=== PATIENT | male | born 1995 | race Caucasian/White ===

== ENCOUNTER 2022-07-24 23:29 | Observation (INO) | payer OTHER, SELFPAY ==
--- NOTE | ~2022-07-24 | CT_ITS ---
EXAMINATION: CT abdomen pelvis w con INDICATION: Right lower quadrant pain TECHNIQUE: Computed tomographic images of the abdomen and pelvis were obtained after the administrati on of 100 cc of Omnipaque 350 intravenous contrast. The dose-length product (DLP) was 433.81 mGy-cm. Automated exposure control and iterative reconstruction technique were employed. COMPARISON: None available FINDINGS: A calcified nodule of the left lower lobe is consistent with old granulomatous disease. The heart size is normal. The liver, spleen, pancreas, gallbladder, and adrenal glands are normal. The k idneys are unremarkable. No pathologically enlarged abdominal or pelvic lymph nodes are identified. N o free intraperitoneal gas or evidence of bowel obstruction. The dilated appendix measures up to 9 mm . There is a trace amount of periappendiceal fluid which tracks into the pelvis. No perforation or ab scess are identified. IMPRESSION: 1. Acute appendicitis. Reviewed, dictated and finalized at location A. TO PICKER IMPRESSION: 1. Acute appendicitis.
[2022-07-24 23:31] VITALS: BP 148/83; PULSE 73; RESP 18; TEMP 36.1; O2SAT 100
[2022-07-24 23:37] VITALS: BP 131/84; PULSE 63; RESP 11; O2SAT 100
[2022-07-24 23:58] LABS: Basophils Absolute Auto 0.1 K/mm3 (0.0-0.1); Basophils Percent Auto 0.6 % (0.2-1.2); Eosinophils Absolute Auto 0.1 K/mm3 (0-0.3); Eosinophils Percent Auto 1.1 % (0-4.4); Hematocrit 46.6 % (42.0-52.0); Hemoglobin 16.1 g/dL (14.0-18.0); Immature Granulocyte Absolute 0.05 K/mm3 (0.00-0.031); Immature Granulocyte Percent A 0.4 % (0-0.5); Lymphocytes Absolute Auto 2.89 K/mm3 (0.9-3.2); Lymphocytes Percent Auto 22.2 % (18.3-44.2); Mean Corpuscular HGB Conc 34.5 g/dl (32-36); Mean Corpuscular Hemoglobin 30.9 pg (26-34); Mean Corpuscular Volume 89.4 fl (80-100); Mean Platelet Volume 9.8 fl (7.4-10.4); Monocytes Absolute Auto 0.8 K/mm3 (0.1-0.6); Monocytes Percent Auto 6.1 % (2.6-8.5); Neutrophils Absolute Auto 9.1 K/mm3 (1.3-6.7); Neutrophils Percent Auto 69.6 % (45.5-73.1); Platelet Count Result 221 k/mm3 (150-375); Red Blood Count 5.21 M/mm3 (4.6-6.20); Red Cell Distribution Width 12.5 % (11.5-14.5)
[2022-07-25] VITALS (20 sets, daily range): BP systolic 108–130; BP diastolic 64–87; PULSE 67–95; RESP 13–22; TEMP 36.1–37.1; O2SAT 94–100; BMI 23.6
[2022-07-25 00:08] LABS: Alanine Aminotransferase 28 U/L (6-50); Albumin Level 4.4 g/dL (3.5-5.1); Alkaline Phosphatase 81 U/L (38-126); Anion Gap 5 mmol/L (8-16); Aspartate Amino Transferase 27 U/L (17-59); Bilirubin,Total 0.5 mg/dL (0.2-1.3); Blood Urea Nitrogen 16 mg/dL (9-20); Calcium 8.9 mg/dL (8.4-10.2); Carbon Dioxide 32 mmol/L (22-30); Chloride 101 mmol/L (98-107); Estimated Glomerular Filt Rate > 60; Glucose 89 mg/dL (65-110); Lipase 116 U/L (23-300); Potassium 3.8 mmol/L (3.4-5.0); Sodium 138 mmol/L (137-145)
--- NOTE | 2022-07-25 00:15 | ED.ABDPAIN ---
HPI - Abdominal Pain General Chief Complaint: Abdominal Pain <SARA Zamora Last Filed: 07/25/22 03:38> Stated Complaint: Abdominal pain <SARA Zamora Last Filed: 07/25/22 03:38> Time Seen by Provider: 07/24/22 23:38 <SARA Zamora Last Filed: 07/25/22 03:38> Source: patient <SARA Zamora Last Filed: 07/25/22 03:38> Mode of arrival: ambulatory <SARA Zamora Last Filed: 07/25/22 03:38> Limitations: no limitations <SARA Zamora Last Filed: 07/25/22 03:38> History of Present Illness HPI narrative: Patient is a 26-year-old male who presents to the ED with report of periumbilical abdominal pain. Patient reports the pain began suddenly around 3 hours ago. It has been constant and worsening since then. He states the pain somewhat radiates through to his back. He has never had pain like this before. He has not taken anything for pain. He thought he may have over ate at [place] and attempted to make himself throw up. He denies any current nausea. Denies issues with diarrhea or constipation. Last BM this am. Denies fevers. Denies urinary symptoms. <SARA Zamora Last Filed: 07/25/22 03:38> Related Data Home Medications: Home Medications Medication Instructions Recorded Confirmed No Home Medications 07/24/22 07/24/22 <SARA Zamora Last Filed: 07/25/22 03:38> Allergies/Adverse Reactions: Allergies Allergy/AdvReac Type Severity Reaction Status Date / Time No Known Allergies Allergy Verified 07/24/22 23:34 <SARA Zamora Last Filed: 07/25/22 03:38> Review of Systems Review of Systems: CONSTITUTIONAL: Denies fever, chills, or sweats. CARDIOVASCULAR: Denies chest pain. RESPIRATORY: Denies dyspnea. GASTROINTESTINAL: See HPI. GENITOURINARY: Denies dysuria or hematuria. SKIN: Denies rash or itching. MUSCULOSKELETAL: See HPI. <Marcia Busby PA-C - Last Filed: 07/25/22 03:38> All systems reviewed & are unremarkable except as noted in HPI and below <Marcia Busby PA-C - Last Filed: 07/25/22 03:38> PMFSH Past Medical History Medical History: Medical History (Updated 07/25/22 @ 03:26 by Marcia Busby PA-C) No pertinent past medical history <Marcia Busby PA-C - Last Filed: 07/25/22 03:38> Surgical History Surgical History: Surgical History (Updated 07/25/22 @ 00:30 by Marcia Busby PA-C) No pertinent past surgical history <Marcia Busby PA-C - Last Filed: 07/25/22 03:38> Social History Social History: Social History (Updated 07/25/22 @ 00:31 by Marcia Busby PA-C) Smoking status: Never smoker <Marcia Busby PA-C - Last Filed: 07/25/22 03:38> Exam Narrative: GENERAL: Well appearing, well-nourished, non-toxic, in mild acute distress due to pain. HEAD: Normocephalic, atraumatic. NECK: Supple. No adenopathy, no masses. RESPIRATORY: Airway patent, respirations nonlabored. Clear to auscultation bilaterally, no rales, rhonchi, wheezing. CARDIOVASCULAR: Regular rate and rhythm without murmurs, rubs, or gallops. Peripheral pulses 2+ and equal bilaterally. ABDOMINAL: Soft, moderate tenderness to periumbilical region and right lower quadrant, negative Rovsing's, no significant rebound tenderness, nondistended, no hepatosplenomegaly. Normoactive BS. MUSCULOSKELETAL: Moves all extremities. Strength/ROM intact without gross deformities. SKIN: Warm, dry, normal color. No rashes. NEURO: A&O X3. Speech clear. Cranial nerves II-XII grossly intact. Steady gait. No ataxic movements. PSYCHIATRIC: Appropriate mood and affect. Normal interaction. <Marcia Busby PA-C - Last Filed: 07/25/22 03:38> Course END MAKER/PA Physician Supervision For this patient encounter, I reviewed the END MAKER or PA documentation, treatment plan, and medical decision making
[2022-07-25] MEDS: ONDANSETRON INJ 4 MG/2 ML VIAL IV PUSH (00:33)
[2022-07-25] MEDS: MORPHINE SULFATE (*CRX) 4 MG/ML INJ IV PUSH ×2 (00:33→05:18)
[2022-07-25] MEDS: SODIUM CHLORIDE 0.9% IV 1,000 ML 999 ML IV CONT (00:33)
[2022-07-25 01:41] LABS: Appearance Urine Clear (Clear); Bilirubin Urine Negative (Negative); Blood Urine Negative (Negative); Color Urine Yellow (Yellow); Glucose Urine UA Negative (Negative); Ketones Urine 2+ mg/dL (Negative); Leukocyte Esterase Ur Negative LEU/UL (Negative); Nitrate Urine Negative (Negative); Protein Urine Trace mg/dL (Negative); Specific Grav Ur 1.015 (1.001-1.035); Urobilinogen Urine 0.2 mg/dL (<2.0); pH Urine 8.5 (5.0-9.0)
[2022-07-25 01:51] LABS: WBC Urine 0-3 /hpf
[2022-07-25 02:26] LABS: Add Urine Microscopic? YES
[2022-07-25 04:40] LABS: Influenza A QL RT-PCR Negative (Negative); Influenza B QL RT-PCR Negative (Negative); SARS-CoV-2 RNA PCR Negative
[2022-07-25] MEDS: SODIUM CHLORIDE 0.9% IV 1,000 ML 100 ML IV CONT (06:25)
--- NOTE | 2022-07-25 09:10 | PM.IMHP ---
H&P: HPI History of Present Illness Date/Time: 07/25/22 09:10 Chief Complaint: Acute appendicitis. Narrative: Patient is a healthy 26-year-old male who is active who presented to the emergency room last evening with a 6 hr history of sudden onset of right lower quadrant abdominal pain. workup in the emergency room [place] [id number] scan abdomen pelvis showed a dilated appendix with wall thickening and some mild periappendiceal inflammation. Findings were consistent with early acute appendicitis. This morning his pain is still present but not as bad. He has been started on Zosyn for IV antibiotics. He has remained afebrile. Review of Systems Review of Systems: The remainder of the review of systems to include constitutional, HEENT, cardiovascular, respiratory, GI, , integumentary, musculoskeletal, endocrine, immunologic, hematologic, psychiatric, and neurologic are all negative except for which is mentioned above in the HPI. [facility] Past Medical History Medical History No pertinent past medical history Surgical History Surgical History No pertinent past surgical history Social History Social History Smoking status: Never smoker Alcohol intake: never Substance use: never Lack of Transportation: No Lack of Food: Never True Current Housing: I Have Housing Concerned About Future Housing: No Difficulty Paying Gas/Electric Bills: No Difficulty Paying for Meds: No Currently Unemployed: No Education: Bachelor's Degree Difficulty w/ Childcare or Family Care: No Spiritual care concerns: No Meds Home Medications and Allergies Home Medications Medication Instructions Recorded Confirmed Type No Home Medications 07/24/22 07/24/22 History Allergies Allergy/AdvReac Type Severity Reaction Status Date / Time No Known Allergies Allergy Verified 07/24/22 23:34 Vital Signs Vital Signs - 24 hr 07/24/22 23:31 07/24/22 23:37 07/25/22 00:01 Temperature 36.1 C L Pulse Rate 73 63 77 Respiratory Rate 18 11 L 14 Blood Pressure 148/83 H 131/84 122/82 Pulse Oximetry 100 100 100 Oxygen Delivery Room Air 07/25/22 00:16 07/25/22 00:17 07/25/22 00:30 Temperature Pulse Rate 70 74 68 Respiratory Rate 16 15 17 Blood Pressure 108/87 Pulse Oximetry 100 100 100 Oxygen Delivery 07/25/22 00:45 07/25/22 01:15 07/25/22 01:30 Temperature Pulse Rate 69 74 83 Respiratory Rate 16 18 16 Blood Pressure Pulse Oximetry 98 94 96 Oxygen Delivery 07/25/22 01:45 07/25/22 02:00 07/25/22 02:15 Temperature Pulse Rate 86 95 94 Respiratory Rate 16 14 14 Blood Pressure Pulse Oximetry 98 96 96 Oxygen Delivery 07/25/22 02:30 07/25/22 02:45 07/25/22 03:41 Temperature 37.1 C Pulse Rate 90 81 80 Respiratory Rate 17 22 H 13 Blood Pressure 121/78 Pulse Oximetry 99 96 100 Oxygen Delivery 07/25/22 04:00 07/25/22 05:52 Temperature 36.2 C L Pulse Rate 79 82 Respiratory Rate 16 18 Blood Pressure 116/68 130/86 Pulse Oximetry 99 99 Oxygen Delivery Exam Const: General: comfortable and no acute distress HENMT: Mouth: Yes moist mucous membranes Eyes: General: appearance normal, both eyes and all related structures Sclera: sclerae normal Pupils: Equal, round and reactive pupils present EOM: EOMs intact bilaterally Neck: Neck: supple and no JVD Resp: Effort & Inspection: normal respiratory effort Auscultation: clear to auscultation bilaterally Cardio: Rate: regular rate Rhythm: regular rhythm GI: Other: The abdomen is soft and nondistended. Mild tenderness to deep palpation in the right lower quadrant. No guarding is appreciated and no focal peritoneal signs are noted. No ventral hernias are noted and no masses are palpated. :
--- NOTE | 2022-07-25 09:16 | WPDHPUPDATE1 ---
History and Physical Update Update Date/Time: 07/25/22 09:16 History and Physical has been reviewed, including an updated exam of the patient. There are NO changes in the patient's condition. Risks, benefits, and alternatives have been discussed and questions answered. Patient agrees to proceed with procedure.
--- NOTE | 2022-07-25 10:04 | WPDANESEPPF ---
Anes - Initial Pre Proc Eval Procedure: Operation Date: 07/25/22 11:00 Proposed Procedures p Laparoscopic Appendectomy - Kimo Garcia MD Date/Time: 07/25/22 10:04 Surgeon: Kimo Garcia MD Pre Op Diagnosis: acute appendicitis Patient Data Age: 26 Gender: M Height: 1.8 m Weight: 77 kg Last Vital Signs Temp 36.2 C L 07/25/22 05:52 Pulse 82 07/25/22 05:52 Resp 18 07/25/22 05:52 BP 130/86 07/25/22 05:52 Pulse Ox 99 07/25/22 05:52 O2 Del Method Room Air 07/24/22 23:31 Allergies Allergy/AdvReac Type Severity Reaction Status Date / Time No Known Allergies Allergy Verified 07/24/22 23:34 Home Medications Medication Instructions Recorded Confirmed Type No Home Medications 07/24/22 07/24/22 History Laboratory Tests 07/24/22 07/24/22 07/25/22 23:51 23:51 01:25 WBC 13.0 K/mm3 H K/mm3 (4.5-10.0) RBC 5.21 M/mm3 M/mm3 (4.6-6.20) Hgb 16.1 g/dL g/dL (14.0-18.0) Hct 46.6 % % (42.0-52.0) MCV 89.4 fl fl (80-100) MCH 30.9 pg pg (26-34) MCHC 34.5 g/dl g/dl (32-36) RDW 12.5 % % (11.5-14.5) Plt Count 221 k/mm3 k/mm3 (150-375) MPV 9.8 fl fl (7.4-10.4) Immature Gran % (Auto) 0.4 % % (0-0.5) Neut % (Auto) 69.6 % % (45.5-73.1) Lymph % (Auto) 22.2 % % (18.3-44.2) [place] % (Auto) 6.1 % % (2.6-8.5) Eos % (Auto) 1.1 % % (0-4.4) Baso % (Auto) 0.6 % % (0.2-1.2) Lymph # (Auto) 2.89 K/mm3 K/mm3 (0.9-3.2) [place] # (Auto) 0.8 K/mm3 H K/mm3 (0.1-0.6) Eos # (Auto) 0.1 K/mm3 K/mm3 (0-0.3) Baso # (Auto) 0.1 K/mm3 K/mm3 (0.0-0.1) Abs Immat Gran (auto) 0.05 K/mm3 H K/mm3 (0.00-0.031) Absolute Neuts (auto) 9.1 K/mm3 H K/mm3 (1.3-6.7) Absolute Nucleated RBC 0.0 K/mm3 K/mm3 (0.0-0.012) Nucleated RBC % 0.0 % % (0.0-0.2) Sodium 138 mmol/L mmol/L (137-145) Potassium 3.8 mmol/L mmol/L (3.4-5.0) Chloride 101 mmol/L mmol/L (98-107) Carbon Dioxide 32 mmol/L H mmol/L (22-30) Anion Gap 5 mmol/L L mmol/L (8-16) BUN 16 mg/dL mg/dL (9-20) Creatinine 1.00 mg/dL mg/dL (0.7-1.3) Estim Creat Clear Calc Not Reportable Estimated GFR > 60 (59 - ) Glucose 89 mg/dL mg/dL (65-110) Calcium 8.9 mg/dL mg/dL (8.4-10.2) Total Bilirubin 0.5 mg/dL mg/dL (0.2-1.3) AST 27 U/L U/L (17-59) ALT 28 U/L U/L (6-50) Alkaline Phosphatase 81 U/L U/L (38-126) Total Protein 7.0 g/dL g/dL (6.3-8.2) Albumin 4.4 g/dL g/dL (3.5-5.1) Lipase 116 U/L U/L (23-300) Urine Color Yellow (Yellow) Urine Appearance Clear (Clear) Urine pH 8.5 (5.0-9.0) Ur Specific [place] 1.015 (1.001-1.035) Urine Protein Trace mg/dL mg/dL (Negative) Urine Glucose (UA) Negative mg/dL mg/dL (Negative) Urine Ketones 2+ mg/dL H mg/dL (Negative) Ur Blood (Man) Negative (Negative) Urine Nitrate Negative (Negative) Urine Bilirubin Negative (Negative) Urine Urobilinogen 0.2 mg/dL mg/dL (<2.0) Leukocyte Esterase Rfl Negative ANUJA/UL ANUJA/UL (Negative) Urine RBC 6-10 /hpf H /hpf (0-2) Urine WBC 0-3 /hpf /hpf Influenza A (RT-PCR) Influenza B (RT-PCR) SARS-CoV-2 RNA (RT-PCR) 07/25/22 03:59 WBC RBC Hgb Hct MCV MCH MCHC RDW Plt Count MPV Immature Gran % (Auto) Neut % (Auto) Lymph % (Auto) [place] % (Auto) Eos % (Auto) Baso % (Auto) Lymph # (Auto) [place] # (Auto) Eos # (Auto)
--- NOTE | 2022-07-25 10:40 | PC.NURSE ---
Pt to preop via bed at 1000
[2022-07-25] MEDS: BUPivacaine HCL 0.5% PF 30 ML VIAL 20 ML INFILTRATE (11:00)
[2022-07-25] MEDS: LIDO 1%/EPINEPHRINE 1:100,000 20 ML VIAL INFILTRATE (11:01)
[2022-07-25] MEDS: KETOROLAC 30 MG/ML VIAL (*BKC) IV PUSH (11:07)
--- NOTE | 2022-07-25 11:19 | P.OP_ITS ---
Procedure Note - Detailed Date of Procedure 07/25/22 Pre-op Diagnosis acute appendicitis Post-op Diagnosis Same Procedure Performed Laparoscopic appendectomy Surgeon Kimo Garcia MD Religious Education Coordinator AMMON Barcenas Anesthesia General Indications Patient presented with right lower quadrant abdominal pain associated with elevated white blood cell count and CT scan findings consistent with early acute appendicitis. Findings Acutely inflamed appendix without rupture or gangrene. No periappendiceal abscess. Description of Procedure After informed consent was obtained note brought to the operating room where he is placed in a supine position and then general endotracheal anesthesia was administered. The abdomen was prepped and draped in the usual sterile fashion after placement of a Garber catheter to decompress the bladder. A time-out was then performed correctly identifying the patient as well as the procedure to be performed. He was already on scheduled IV antibiotics. I made a small periumbilical incision with a scalpel and then with traction upwards on the anterior abdominal wall a Varees needle was placed into the abdomen without difficulty and I insufflated to an adequate pneumoperitoneum of 15millimeters Hg with CO2. I then placed a 12millimeter Optiview port the periumbilical trocar port site. I then placed a 5millimeter suprapubic trocar port and a 5millimeter lower quadrant trocar port both under direct visualization. The appendix was visualized in the right side of the pelvis. Utilizing laparoscopic instruments was able to elevate the appendix and I identified the base. The appendix was inflamed but not gangrenous or ruptured. The base of the appendix appeared to be normal. I then made a defect through the mesoappendix with a [place] Dissector just at the base and utilized a 45 mm Endo-ALLISON Stapler to divide the appendix flush with the cecum. A vascular reload to the Endo-ALLISON Stapler was used to divide the mesoappendix. The appendix was then placed into an Endo- Catch bag and brought out through the periumbilical car port site. It was sent to pathology for examination. I then irrigated out the right lower quadrant of the abdomen with saline solution. Hemostasis on the staple lines was good. I then aspirated the fluid from the right lower quadrant of the abdomen and from the pelvis. I then removed all the trocar ports under visualization and all port sites appeared hemostatic. I then allowed the abdomen is decompress. I then closed the 12millimeter periumbilical trocar port fascial defect utilizing a 0 Vicryl suture. The skin edges on all port sites were then closed utilizing a running subcuticular 4 Monocryl suture. incisions were then cleaned in skin glue was applied. Estimated Blood Loss 10 Urine Output 0 Drains No Packing No Pathology Yes (Appendix to pathology) Complications No immediate complications Condition Stable Disposition PACU [facility] Billing Surgery - Charge Forward: Surgery Billing
[2022-07-25] MEDS: LACTATED RINGERS 1,000 ML 30 ML IV CONT (11:30)
[2022-07-25] MEDS: fentaNYL CITRATE INJ (*CRX) 100 MCG/2 ML VIAL 25 MCG IV PUSH ×8 (11:30→12:14)
[2022-07-25] MEDS: HYDROcodone/acetaminophen (*CRX) 5-325 MG TABLET 1 TAB PO (15:06)
--- NOTE | 2022-07-25 18:38 | PM.DS ---
DS: Admitting Diagnosis Discharge Date July 25 2022 Admitting Diagnosis acute appendicitis DS: Discharge Diagnosis Discharge Diagnosis (1) Acute appendicitis: Qualifiers: Acute appendicitis type: with localized peritonitis Appendicitis abscess presence: without abscess Appendicitis gangrene presence: without gangrene Appendicitis perforation presence: without perforation Qualified Code(s): K35.30 - Acute appendicitis with localized peritonitis, without perforation or gangrene Code(s): K35.80 - Unspecified acute appendicitis Status: Acute DS: Summary Hospital Course Hospital Course: Patient presented to the emergency room with a 12 hr history of right lower quadrant abdominal pain. workup in emergency room showed an elevated white blood cell count and a CT scan of pelvis showed a dilated and inflamed appendix without perforation or abscess formation. He was started on IV antibiotics and made NPO and hydrated with IV fluids and sent to this surgical floor. The next morning he was taken to the operating room where he underwent an uncomplicated laparoscopic appendectomy. Postoperatively his course in recovery room was uneventful he was transferred back to the surgical floor for routine postoperative care. He was started on clear liquids and advanced to regular diet which he tolerated well. He was able to get up and ambulate to the bathroom without difficulty. His pain was well controlled with oral narcotic pain medication only. Late on the day of surgery he was doing very well and was discharged home in improved condition. Status at Discharge Functional status at discharge: independent ambulation Overall status at discharge: patient is progressing back to baseline Time Spent with Patient Time attestation: Total time spent providing and/or coordinating discharge services: Time spent: Less than 30 minutes Exam Narrative: Abdomen is soft and nondistended. Port site incisions are intact without any redness or drainage. Expected mild tenderness around the incisions. DS: Data Data Completed and Pending Pending studies at discharge: Pending at discharge 07/25/22 10:48 Surgical [PTH] Routine Labs on day of discharge: Labs from last 24 hours 07/25/22 07/25/22 07/24/22 03:59 01:25 23:51 WBC RBC Hgb Hct MCV MCH MCHC RDW Plt Count MPV Immature Gran % (Auto) Neut % (Auto) Lymph % (Auto) [place] % (Auto) Eos % (Auto) Baso % (Auto) Lymph # (Auto) [place] # (Auto) Eos # (Auto) Baso # (Auto) Abs Immat Gran (auto) Absolute Neuts (auto) Absolute Nucleated RBC Nucleated RBC % Sodium 138 Potassium 3.8 Chloride 101 Carbon Dioxide 32 H Anion Gap 5 L BUN 16 Creatinine 1.00 Estim Creat Clear Calc Not Reportable Estimated GFR > 60 Glucose 89 Calcium 8.9 Total Bilirubin 0.5 AST 27 ALT 28 Alkaline Phosphatase 81 Total Protein 7.0 Albumin 4.4 Lipase 116 Urine Color Yellow Urine Appearance Clear Urine pH 8.5 Ur Specific [place] 1.015 Urine Protein Trace Urine Glucose (UA) Negative Urine Ketones 2+ H Ur Blood (Man) Negative Urine Nitrate Negative Urine Bilirubin Negative Urine Urobilinogen 0.2 Leukocyte Esterase Rfl Negative Urine RBC 6-10 H Urine WBC 0-3 Influenza A (RT-PCR) Negative Influenza B (RT-PCR) Negative SARS-CoV-2 RNA (RT-PCR) Negative 07/24/22 23:51 WBC 13.0 H RBC 5.21 Hgb 16.1 Hct 46.6 MCV 89.4 MCH 30.9 MCHC 34.5 RDW 12.5 Plt Count 221 MPV 9.8 Immature Gran % (Auto) 0.4 Neut % (Auto) 69.6 Lymph % (Auto) 22.2 [place] % (Auto) 6.1 Eos % (Auto) 1.1 Baso % (Auto) 0.6 Lymph # (Auto) 2.89 [place] # (Auto) 0.8 H Eos # (Auto) 0.1 Baso # (Auto) 0.1 Abs Immat Gran (auto) 0.05 H Absolute Neuts (auto) 9.1 H Absolute Nucleated RBC 0.0 Nucleated RBC % 0.0 Sodium P
--- NOTE | 2022-07-25 20:19 | PC.NURSE ---
Patient called nurse's station s/p discharge; Pain medication e-scribed to [facility] on [address] was unavailable. professor of violin contacted Dr. Garcia to notify that medication was unavailable, and now the pharmacy is closed. Per [facility] in [place], medication is available, but needs to be e-scribed. Dr. Garcia is not able to e-scribe from home at present time and recommended that patient take 600mg ibuprofen q6h prn, alternating with 650mg tylenol q6h prn to assist in pain management until the morning. If pain persists and is not controlled with OTC medications, it is recommended for patient to return to the ER for further pain management. If OTC medication is effective, patient has been instructed to contact Dr. Garcia's office in the morning to obtain prescription for pain medication.
== END 2022-07-25 19:00 | disposition home or self-care (01) ==
LOC: ANHED 07-25 03:35 → ANH3MEDSUR 07-25 03:58
PROVIDERS: Physician Assistant; Admitting Provider Surgery; Emergency Provider Emergency Medicine; Visit Provider Surgery
PROC: 0DTJ4ZZ Resection of Appendix, Percutaneous Endoscopic Approach (ICD-10-PCS; CPT 44970; principal; 2022-07-25 11:00)
DX: K35.80 Unspecified acute appendicitis (principal); D72.829 Elevated white blood cell count, unspecified; F17.290 Nicotine dependence, other tobacco product, uncomplicated; Z20.822 Contact with and (suspected) exposure to COVID-19
CPT/HCPCS: 44970; 36415; 74177; 80053; 81001; 83690; 85025; 87636; 88304; 96361; 96365; 96366; 96374; 96375; 99285; A9270; G0378; J0330; J1100; J1885; J2250; J2270; J2370; J2405; J2543; J2704; J2710; J3010; J7030; J7120; Q9967